=== PATIENT | female | born 1950 | race Caucasian/White ===

== ENCOUNTER 2022-10-03 08:42 | Day surgery (SDC) | payer MEDICARE, SELFPAY ==
--- NOTE | 2022-10-03 | PATH_ITS ---
[facility] Accession Number: [id number] No. of containers..01 Tissue . 01 Material submitted: . colon - RANDOM COLON BIOPSY . 01 Diagnosis: Random Colon, Biopsy: Lymphocytic colitis. Negative for granulomas, dysplasia, and malignancy. MRV 10/05/2022 175 Local . 01 Electronically signed: . Padmaja Finn MD, Pathologist NPI- [id number] . 01 Gross description: . RANDOM COLON BIOPSY: Received in formalin are 3 fragment(s) of callahan, soft tissue measuring 0.1 x 0.1 x 0.1 cm to 0.3 x 0.1 x 0.1 cm submitted entirely in 1 cassette(s) /JCARLOS 10/04/20221912 Local . 01 Pathologist provided ICD-10: R19.4, K52.89 . 01 CPT . 194716 Performed at: 01 [facility] [address] [place] [address], [place], [place] [id number] MD Michael Chen MD Phone: [phone]
[2022-10-03 09:04] VITALS: BP 132/79; PULSE 68; RESP 17; TEMP 36.3; O2SAT 100; BMI 18.4
[2022-10-03] MEDS: LACTATED RINGERS 1,000 ML 200 ML IV (09:22)
--- NOTE | 2022-10-03 09:50 | P.HP_ITS ---
History of Present Illness History of Present Illness Date Patient Seen: 10/03/22 Time Patient Seen: 09:50 Chief complaint: Dx Colonoscopy Narrative: 72-year-old woman with a recent change in bowel habit and first-degree family member with colon cancer developed at advanced age. Please refer to the H and P from July 2022 for further detail. Her altered bowel habit has largely resolved since last seen. [facility] Medical History Adenomatous colon polyp Arthritis of hand Basal cell carcinoma of skin, site unspecified Dyspnea Family hx of colon cancer Herpes simplex Hx of hemorrhoids Hypothyroid Personal history of colonic polyps Radiculopathy Surgical History History of tonsillectomy Social History household members: none Smoking Status: Never smoker alcohol intake: current Meds Home Medications and Allergies Home Medications Medication Instructions Recorded Confirmed Type levothyroxine 125 mcg tablet ##0 11/15/16 07/20/22 History (Synthroid) metronidazole 0.75 % topical cream 1 peter topical ##0 11/15/16 07/20/22 History (MetroCream) multivitamin 1 tab PO DAILY 10/03/22 10/03/22 History Allergies Allergy/AdvReac Type Severity Reaction Status Date / Time Sulfa (Sulfonamide Allergy Intermediate RASH Verified 10/03/22 09:00 Antibiotics) [SULFA (SULFONAMIDE ANTIBIOTICS)] Exam Vital Signs (past 8 hours): - 10/03/22 09:04 Temperature 97.3 F L Pulse Rate 68 Respiratory Rate 17 Blood Pressure 132/79 Pulse Oximetry 100 Oxygen Delivery Method Room Air Oxygen Delivery Method Room Air Narrative Exam Narrative: General adult woman alert oriented no acute distress Assessment & Plan Assessment and plan (1) Change in bowel habit: Status: Acute Assessment & Plan narrative: Colonoscopy recommended for evaluation of change in bowel habit. Technical details were discussed. Risks, benefits, alternatives explained. Risks including but not limited to myocardial infarction, aspiration, bleeding, pain, missed lesion, incomplete examination, need for further radiographic studies, colonic perforation, and need for major abdominal surgery were discussed. All questions were answered to their satisfaction, and they are in agreement with this plan.
[2022-10-03 10:19] VITALS: BP 83/56; PULSE 63; RESP 16; TEMP 36.7; O2SAT 97
[2022-10-03 10:24] VITALS: BP 92/61; PULSE 57; RESP 16; O2SAT 97
--- NOTE | 2022-10-03 10:27 | PM.OP.COLON ---
Operative Date/Time/Diagnoses Date of procedure: 10/03/22 Time of procedure: 10:27 Pre-op diagnosis: Altered bowel habit Post-op diagnosis: same Procedure & Clinicians Study performed: Colonoscopy Same procedure as scheduled: Yes Indications: 72-year-old woman with altered bowel habit here for diagnostic colonoscopy. Surgeon: Ramses Herrera Procedure Notes Procedure in detail: The history and physical was performed/updated and the patient is ASA class is 2. The procedure was discussed in detail with the patient. Potential risks complications including infection, bleeding, missed diagnosis, perforation, need for surgery, and were explained. Their questions were answered and informed consent was obtained. Patient was brought to the procedure room and placed standard monitoring equipment. The patient's vital signs were monitored continuously throughout the entire procedure. Prior to starting time-out was performed. The patient was placed in the left lateral recumbent position. Procedural sedation was administered by anesthesia. Examination began with a thorough inspection of the perianal area there was no evidence of fissures, fistulae, external hemorrhoids or cutaneous malignancy. The colonoscopy scope was then placed into the anal canal and was advanced to the cecum, which was identified by the ileocecal valve, the appendiceal orifice and the confluence of the taenia. The scope was then slowly withdrawn examining colon thoroughly in all directions, irrigating it of any residual stool. The colon was without inflammation masses or polyps.. The colon was notable for mild to moderate diverticulosis within the sigmoid colon. Random colonic biopsies were taken with forceps for evaluation of microscopic colitis. The patient tolerated the procedure well. They will be discharged once criteria are met. The prep was of good/excellent quality. The withdrawl time was 6 minutes. Specimen(s): other (Random colonic biopsies) Impression: Normal colonoscopy Post-procedure Recommendations: High fiber diet Plan for aftercare: Likely no need for further colonoscopy Disposition: same day surgery
[2022-10-03 10:29] VITALS: BP 109/70; PULSE 59; RESP 18; O2SAT 99
--- NOTE | 2022-10-03 10:31 | SUR.PHASEI ---
noted some ST elevation in PACU and went and asked anesthesia provider and he stated it was always that way. So to do nothing about it. Pt denies chest pain, shortness of breath and nausea.
[2022-10-03 10:35] VITALS: BP 110/71; PULSE 60; RESP 18; TEMP 36.7; O2SAT 99
[2022-10-03 10:40] VITALS: BP 109/76; PULSE 56; RESP 18; O2SAT 100
== END 2022-10-03 10:49 | disposition home or self-care (01) ==
PROVIDERS: PCP Physician Assistant; Referring Provider Surgery; Visit Provider Surgery
PROC: 0DJD8ZZ Inspection of Lower Intestinal Tract, Via Natural or Artificial Opening Endoscopic (ICD-10-PCS; CPT 45378; principal; 2022-10-03 09:45)
DX: K52.832 Lymphocytic colitis (principal); K57.30 Diverticulosis of large intestine without perforation or abscess without bleeding
CPT/HCPCS: 45380; J2250; J2704; J3010